=== PATIENT | male | born 1970 | race Caucasian/White ===

== ENCOUNTER 2024-07-13 11:30 | Outpatient (CLI) | payer BC ==
--- NOTE | 2024-07-13 15:39 | XRAY Report ---
PROCEDURE: Ribs w/PA Chest 3+V LT INDICATIONS: CONTUSION OF MIDDLE BACK WALL OF THORAX TECHNIQUE: 2 views of the ribs were acquired, along with a single view chest. COMPARISON: None. FINDINGS: Surgical changes and devices: None. Bones and chest wall: Acute-subacute, mildly displaced left 8th posterior rib fracture. No other fra ctures or dislocations. No suspicious bony lesions. Overlying soft tissues appear unremarkable. Lungs and pleura: No pleural effusions or pneumothorax. Lungs appear clear. Mediastinum: Mediastinal contours appear normal. Heart size is normal. IMPRESSION: Acute, subacute, mildly displaced left 8th posterior rib fracture. Reviewed by: Shorty Whitmore MD on 07/13/2024 3:38 PM PDT Approved by: Shorty Whitmore MD on 07/13/2024 3:38 PM PDT Station ID: [id number]
== END 2024-07-13 11:45 | disposition home or self-care (01) ==
LOC: DI.N 11:30
PROVIDERS: ATTEND Physician Assistant
DX: S22.32XA Fracture of one rib, left side, initial encounter for closed fracture (principal)